=== PATIENT | male | born 1970 | race Caucasian/White ===

== ENCOUNTER 2023-03-29 11:51 | Day surgery (SDC) | payer OTHER ==
[~2023-03-29] VITALS: Ht 185.4 cm; Wt 114.3 kg
[~2023-03-29 11:51] MED LIST: ERYT.5TO OS; LISI5 PO
[2023-03-29] MEDS ORDERED: IRBESARTAN300 M3 PO (12:26)
[2023-03-29] MEDS ORDERED: IBU800 M1 PO (12:26)
[2023-03-29] MEDS ORDERED: SILDENAFIL CIT100 MG PO (12:27)
[2023-03-29] MEDS ORDERED: HYDROCODONE-AC1 EA19 PO (12:27)
[2023-03-29] MEDS ORDERED: NAPROXEN 500 MG (12:28)
--- NOTE | 2023-03-29 12:40 | NUR ---
03/29/23 1240 Gaviota Allison IN ROOM WITH PT. CALL LIGHT IN HAND. BED IN LOWEST POISITION. NO QUESTIONS OR CONCERNS AT THIS TIME
[2023-03-29 13:59] VITALS: BP 132/88
== END 2023-03-29 14:09 | disposition home or self-care (01) ==
LOC: ORSCSDS 11:51
DX: R13.19 Other dysphagia (principal); Z12.11 Encounter for screening for malignant neoplasm of colon; Z80.0 Family history of malignant neoplasm of digestive organs; K29.70 Gastritis, unspecified, without bleeding; I10 Essential (primary) hypertension; E66.9 Obesity, unspecified; Z68.33 Body mass index [BMI] 33.0-33.9, adult; K42.9 Umbilical hernia without obstruction or gangrene; Z79.899 Other long term (current) drug therapy
CPT/HCPCS: 43239; G0105; 88305; 88342; J2704; J7120

== ENCOUNTER 2023-04-18 06:01 | Day surgery (SDC) | payer OTHER ==
[2023-04-18] VITALS (16 sets, daily range): BP systolic 122–167; BP diastolic 82–99
[~2023-04-18] VITALS: Ht 184 cm; Wt 114.4 kg
[~2023-04-18 06:01] MED LIST changes: +HYDROCODONE-AC1 EA19 PO; +IBU800 M1 PO; +IRBESARTAN300 M3 PO; +NAPROXEN 500 MG; +SILDENAFIL CIT100 MG PO
--- NOTE | 2023-04-18 06:53 | NUR ---
Ambulatory in Day Surgery History, Chart, Medications and Allergies reviewed before start of procedure.Patient confirms NPO status and agrees with scheduled surgery. Patient reports completing Chlorhexadine shower X2 prior to admission to hospital.Lungs clear T/O to Auscultation. Patient States Post-Procedure ride home has been arranged.
--- NOTE | 2023-04-18 07:01 | NUR ---
DISCUSSSED WITH DR. SHERWOOD, PATIENT WITHOUT LABS OR CURRENT EKG. NO NEW ORDERS RECEIVED.
--- NOTE | 2023-04-18 07:26 | NUR ---
DISCUSSED WITH DR. BRIDGES- PATIENT W/O LABS OR EKG. NO NEW ORDERS RECEIVED.
--- NOTE | 2023-04-18 10:39 | NUR ---
Discharge instructions reviewed with patient. Patient verbalizes understanding. Copy given to patient to take home. Discharged via wheelchair to private car for ride home. ICE PACK PROVIDED ALONG WITH DISCHARGE INSTRUCTIONS & PATIENT BELONGINGS. PT'S SPOUSE CONFIRMED RX CALLED INTO PREFERRED PHARMACY.
== END 2023-04-18 10:35 | disposition home or self-care (01) ==
LOC: ORSCMMR 06:01 → ORD 07:30 → ORSCMMR 07:30
PROVIDERS: Surgery
PROC: 0WUF4JZ Supplement Abdominal Wall with Synthetic Substitute, Percutaneous Endoscopic Approach (ICD-10-PCS; principal; 2023-04-18 07:30)
DX: K42.9 Umbilical hernia without obstruction or gangrene (principal); I10 Essential (primary) hypertension; G47.33 Obstructive sleep apnea (adult) (pediatric); K21.9 Gastro-esophageal reflux disease without esophagitis; Z79.899 Other long term (current) drug therapy; E66.9 Obesity, unspecified; Z68.33 Body mass index [BMI] 33.0-33.9, adult
CPT/HCPCS: A9270; C1781; J1100; J2250; J2405; J2704; J3010; J7120

== ENCOUNTER → 2023-11-20 | Outpatient (CLI) | payer SELFPAY ==
[2023-11-23 08:35] LABS: ETHYL GLUCURONIDE, URN, QUANT <100 ng/mL; ETHYL SULFATE, URN, QUANT <100 ng/mL
== END | disposition home or self-care (01) ==
LOC: LAB SHORT 16:42 → LAB 16:42
PROVIDERS: Family Medicine
DX: M17.0 Bilateral primary osteoarthritis of knee (principal)
CPT/HCPCS: G0480

== ENCOUNTER → 2024-08-18 | Outpatient (CLI) | payer SELFPAY ==
[2024-08-24 22:27] LABS: TESTOSTERONE, FREE BY DIALYSIS 49.9 pg/mL (47.0-244.0); TESTOSTERONE, TOTAL MASS SPEC 313.1 ng/dL (300.0-890.0)
== END ==
LOC: LAB 17:24 → LAB SHORT 17:24
PROVIDERS: Nurse Practitioner Family
DX: R53.83 Other fatigue (principal); R53.81 Other malaise
CPT/HCPCS: 84402; 84403

== ENCOUNTER → 2025-02-16 | Outpatient (CLI) | payer SELFPAY ==
[2025-02-16 17:41] LABS: BASOPHILS ABSOLUTE AUTO 0.03 K/mm3 (0.00-0.23); BASOPHILS PERCENT AUTO 0 % (0-2); EOSINOPHILS ABSOLUTE AUTO 0.28 K/mm3 (0.00-0.68); EOSINOPHILS PERCENT AUTO 4 % (0-6); Hematocrit 40.5 % (37.0-53.0); Hemoglobin 14.4 g/dL (13.5-17.5); IMMATURE GRAN ABSOLUTE AUTO 0.02 K/mm3 (0.00-0.10); IMMATURE GRAN PERCENT AUTO 0 % (0-1); LYMPHOCYTES ABSOLUTE AUTO 1.89 K/mm3 (0.84-5.20); LYMPHOCYTES PERCENT AUTO 24 % (21-46); MONOCYTES ABSOLUTE AUTO 0.64 K/mm3 (0.16-1.47); MONOCYTES PERCENT AUTO 8 % (4-13); Mean Corpuscular HGB 31.8 pg (26.0-34.0); Mean Corpuscular HGB Conc 35.6 g/dL (31.5-36.5); Mean Corpuscular Volume 89 fL (80-100); Mean Platelet Volume 9.3 fL (9.1-12.4); NEUTROPHILS PERCENT AUTO 63 % (41-73); Platelet Count 313 K/mm3 (150-400); RDW Standard Deviation 42.6 fL (35.1-46.3); Red Blood Cell Count 4.53 M/mm3 (4.30-5.90); White Blood Cell Count 7.76 K/mm3 (4.00-11.30)
[2025-02-16 19:42] LABS: Alanine Aminotransfer (ALT/SGP 34 U/L (12-78); Albumin, Blood 3.7 g/dL (3.4-5.0); Albumin/Globulin Ratio 1.2 (0.8-1.8); Alk Phos 114 U/L (50-136); Anion Gap 7 mmol/L (3-11); Aspartate Aminotrans (AST/SGOT 25 U/L (12-37); Bilirubin, Total 0.5 mg/dL (0.1-1.0); Blood Urea Nitrogen 16 mg/dL (8-24); Bun/Creatinine Ratio 14.3 (12.0-20.0); CO2, Blood 25 mmol/L (21-32); Chloride, Blood 110 mmol/L (98-108); Creatinine, Blood 1.12 mg/dL (0.60-1.20); Globulin, Blood 3.2 g/dL (2.2-4.0); Glomerular Filtration Rate 79 (60-); Glucose, Blood 90 mg/dL (70-99); Potassium, Blood 3.8 mmol/L (3.5-5.5); Sodium, Blood 138 mmol/L (136-145); Total Protein, Blood 6.9 g/dL (6.4-8.2)
== END | disposition home or self-care (01) ==
LOC: LAB 17:17 → LAB SHORT 17:17
PROVIDERS: Nurse Practitioner Family
DX: Z12.5 Encounter for screening for malignant neoplasm of prostate (principal); I10 Essential (primary) hypertension
CPT/HCPCS: 80053; 85025; G0103

== ENCOUNTER → 2025-02-23 | Outpatient (CLI) | payer SELFPAY ==
[2025-02-28 15:37] LABS: TESTOSTERONE, FREE BY DIALYSIS 43.6 pg/mL (47.0-244.0); TESTOSTERONE, TOTAL MASS SPEC 273.9 ng/dL (300.0-890.0)
== END ==
LOC: LAB SHORT 16:21 → LAB 16:21
PROVIDERS: Nurse Practitioner Family
DX: Z12.5 Encounter for screening for malignant neoplasm of prostate (principal); I10 Essential (primary) hypertension
CPT/HCPCS: 84402; 84403